=== PATIENT | female | born 1960 | race Caucasian/White ===

== ENCOUNTER 2016-03-22 08:30 | Inpatient (IN) | payer BC, OTHER ==
[2016-03-15 10:15] VITALS: BMI 21.9
--- NOTE | 2016-03-25 14:09 | HP ---
Admitting History and Physical - Primary Care Physician PCP: Shawna Spence - Admission Chief Complaint: left breast cancer History of Present Illness: Patient is a 56 yo female noted to have left breast calcifications x 2 areas ( post and ant) on screening mammo. 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 MRI was c/w known cancer and negative for contralateral dz. Genetic testing negative. Patient is now presenting for left mastectomy, snbx, possible andx and reconstruction. History Source: Patient Limitations to Obtaining History: No Limitations - Past Medical History Pulmonary: Yes: Asthma ...: No Endocrine: Yes: Hypothyroidism - Past Surgical History Past Surgical History: Yes: Tonsillectomy Additional Past Surgical History: rhinoplasty - Advance Directives Advance Directives: Yes: Health Care Proxy - Smoking History Smoking history: Never smoked Have you smoked in the past 12 months: No - Alcohol/Substance Use Hx Alcohol Use: Yes (on3 per week) Home Medications - Allergies Allergies/Adverse Reactions: Allergies Allergy/AdvReac Type Severity Reaction Status Date / Time No Known Allergies Allergy Verified 03/15/16 10:17 - Home Medications Home Medications: Ambulatory Orders Albuterol Sulfate [Proair Respiclick] 90 mcg IH PRN PRN 03/15/16 Cholecalciferol (Vitamin D3) [Vitamin D3 -] 1,000 unit PO DAILY 03/15/16 Levothyroxine [Synthroid -] 112 mcg PO DAILY 03/15/16 Mometasone Furoate [Asmanex 220Mcg -] 1 inh IH DAILY 03/15/16 [place]-3 Fatty Acids [Fish Oil] 1 cap PO DAILY 03/15/16 Family Disease History - Family Disease History Family Disease History: Diabetes: Father, Mother, Brother, [place]: Grandparent ( breast cancer) Other Family History: paternal aunt breast cancer 70s. maternal GM pancreatic cancer at 80 Review of Systems - Review of Systems Constitutional: reports: No Symptoms Cardiovascular: reports: No Symptoms Gastrointestinal: reports: No Symptoms Musculoskeletal: reports: Back Pain Physical Examination Constitutional: Yes: Well Nourished, No Distress Cardiovascular: Yes: WNL Respiratory: Yes: WNL Breast(s): Yes: Other (no suspicious palpable masses noted bilaterally. no suspicious adenopathy noted bilaterally) Problem List - Problems (1) Breast cancer, left Code(s): C50.912 - MALIGNANT NEOPLASM OF UNSPECIFIED SITE OF LEFT FEMALE BREAST Qualifiers: Breast location: overlapping sites of breast Patient gender: female Qualified Code(s): C50.812 - Malignant neoplasm of overlapping sites of left female breast Assessment/Plan Plan left mastectomy, snbx, poss andx with reconstruction
[2016-03-29] MEDS ORDERED: GENTAMICIN SO4 80 MG/2 ML VIAL ONE (07:25)
[2016-03-29] MEDS ORDERED: ceFAZolin SODIUM 1 GM VIAL ONE ×3 (07:25→14:06)
[2016-03-29] MEDS ORDERED: ISOSULFAN BLUE 10 MG/ML VIAL SQ ONE (07:39)
[2016-03-29] MEDS ORDERED: SUCCINYLCHOLINE CHLORIDE 200 MG/10 ML VIAL ONE (07:57)
[2016-03-29] MEDS ORDERED: PROPOFOL 20 ML ONE (07:57)
[2016-03-29] MEDS ORDERED: MIDAZOLAM HCL 2 MG/2 ML SINGLE DOSE VIAL ONE (07:57)
[2016-03-29] MEDS ORDERED: LIDOCAINE HCL/PF 2% SDV 5ML VIAL ONE (07:59)
[2016-03-29] MEDS ORDERED: DEXAMETHASONE SOD PHOSPHATE 4 MG/1 ML VIAL ONE (08:00)
[2016-03-29] MEDS ORDERED: ONDANSETRON 4 MG/2 ML VIAL ONE ×2 (08:00→14:06)
[2016-03-29] MEDS ORDERED: ROCURONIUM BROMIDE 50 MG/5 ML VIAL ONE (09:15)
[2016-03-29] MEDS ORDERED: LIDOCAINE 1%-EPI 1:100,000 30 ML MDV IJ ONE (09:30)
[2016-03-29] MEDS ORDERED: HYDROmorphone HCL/PF 1 MG/ML VIAL (FOR PYXIS CHARGING ONLY) ONE (09:33)
[2016-03-29] MEDS ORDERED: HYDROmorphone *PCA* 10MG/50ML DISP.SYRIN PCA ONE (09:36)
[2016-03-29] MEDS ORDERED: ZOLPIDEM TARTRATE 5 MG TABLET PO PRN (11:10)
[2016-03-29] MEDS ORDERED: ACETAMINOPHEN 325 MG TABLET (FP) PO PRN (11:10)
[2016-03-29] MEDS ORDERED: ONDANSETRON 4 MG/2 ML VIAL IVPB PRN (11:10)
[2016-03-29] MEDS ORDERED: PATIENT'S OWN MEDICATION (NON-FORMULARY) (Albuterol Sulfate [Proair Respiclick] 90 MCG) IH PRN (11:12)
[2016-03-29] MEDS ORDERED: DEXTROSE 5%-0.45% SALINE 1,000 ML IV SCH (11:15)
[2016-03-29] MEDS ORDERED: ONDANSETRON 4 MG/2 ML VIAL IVPUSH PRN (13:27)
[2016-03-29] MEDS ORDERED: DEXAMETHASONE SOD PHOSPHATE 4 MG/1 ML VIAL IVPUSH PRN (13:27)
[2016-03-29] MEDS ORDERED: PROMETHAZINE HCL 25 MG/1 ML VIAL IVPB PRN (13:27)
[2016-03-29] MEDS ORDERED: LACTATED RINGERS SOLUTION 1,000 ML IV SCH (13:30)
[2016-03-29] MEDS: HYDROmorphone *PCA* 10MG/50ML DISP.SYRIN PCA SCH (14:14)
[2016-03-29] MEDS: CEFAZOLIN 1 GM/D5W 50 ML IVPB SCH ×2 (15:00→21:14)
--- NOTE | 2016-03-29 16:21 | OP ---
DATE OF OPERATION: 03/29/2016 TITLE OF PROCEDURE: Left breast reconstruction with tissue composite engineer and acellular dermal matrix with separate 4-cm complex closure of left axillary wound. ATTENDING SURGEON: Fantasma Mathis MD NURSE EPIDEMIOLOGIST: There were no assistants. DESCRIPTION OF PROCEDURE: The procedure was performed in combination with a left-sided mastectomy with left sentinel lymph node biopsy performed by Dr. Spence and his team. Patient had been draped and positioned by Dr. Spence and his team, and I am scrubbed into the operation after completion of his portion of the procedure. The patient, prior to Dr. Sheridan portion of the procedure had received a gram of Ancef. Patient received sequential compression devices and LORRAINE stockings. Position points were carefully checked by surgical anesthesia team. She is draped and prepped in standard surgical fashion. At the completion of Dr. Sheridan portion of the procedure, I am scrubbed into the operation and feel hemostasis of the mastectomy wound was achieved. After which, the wound was copiously irrigated and a subpectoral pocket was developed. The lateral border of the pectoralis major muscle was elevated and dissection carried deep to the pectoralis dividing the most inferior fibers, however, leaving the more medial fibers attached. The inferior mammary fold was marked. A medium-sized contour perforated AlloDerm was sewn to the inframammary fold and the medial fold and to the medial inferior free edge of the pectoralis muscle. This was done with a 2-0 PDS suture. At this point, SPY was used to assess for perfusion of the skin flaps. The SPY showed several areas of inadequate perfusion, and decision at this point was made to choose a tissue composite engineer. A [employer] 133FX-12 Tissue Curriculum Manager was brought onto the field. It was rinsed in triple antibiotic solution. The triple antibiotic solution is 50,000 units of Bacitracin, a gram of Ancef, 8 mg of gentamicin, and a liter of saline. It was evacuated of all are using a 1-touch technique with new sterile gloves. These were placed into the pocket. The free edge of the inferior border of the pectoralis major muscle was then sewn to the superior freed edge of the AlloDerm with a running 2-0 PDS suture. The free edges of the skin were trimmed of several millimeters in order to remove any free edges of skin. The SPY was then reperformed showing minimal improvement of the areas of hypoperfusion. The tissue composite engineer was filled only to 50 mL and closed using a closed filling system. The deep capsular tissue was closed with a running locking 3-0 Monocryl suture followed by a series of interrupted buried deep dermal 3-0 Monocyrl suture followed by a running subcuticular 3-0 Monocryl suture. The axillary wound was then separately closed with a series of interrupted deep fascial 3-0 Monocryl suture within the Scarpas layer of fascia. The skin was then closed with a series of interrupted buried deep dermal 3-0 Monocryl sutures followed by running subcuticular 3-0 Monocryl sutures. All wounds were dressed with Steri-Strips. A 4x4 and ABD gauze dressing was applied with a compressive tube top. Patient was awoken from anesthesia. Please note that prior to closure, two size 10 flat SHEMAR drains were brought out through the lateral stab wound incisions, one in each superior and inferior recess of the wound, and the drains were placed to bulb suction. FANTASMA MATHIS M.D. [id number]
--- NOTE | 2016-03-29 18:02 | PN ---
Progress Note (short form) - Note Progress Note: VSS AF SHEMAR thin and appropriate, No collections Plan is for ambulation IS, wean MACHINE MOVER for AM
--- NOTE | 2016-03-29 18:47 | OP ---
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 PROCEDURE: Left total nipple-sparing mastectomy with sentinel node biopsy. ANESTHESIA: General, intubated. ATTENDING SURGEON: Shawna Spence MD BLOOD LOSS: Minimal. COMPLICATIONS: None. PROCEDURE: Patient was made aware of the risks and benefits of the procedure and consented. She was placed in the supine position, and after general anesthesia was induced, the patient was intubated. Then 2 mL of 1% isosulfan blue was locally infiltrated into the peritumoral tissues. The operative site was prepped and draped in the usual sterile fashion. After waiting approximately 10 minutes, with gentle manual compression, a curvilinear incision was made in the left axilla. Using blunt and sharp dissection, tissues were dissected down to the axillary fat, where several blue lymph nodes were identified and submitted for frozen section. This was reported as no evidence of malignancy. A mixture of 0.25% lidocaine with epinephrine combined with saline in a 1:2 ratio was infiltrated in the subcutaneous tissue of the left breast. An inframammary incision was made totalling 10 cm. Using electrocautery, the breast tissue was taken off the pectoralis muscle extending superior to the clavicle, medial to sternum, lateral latissimus dorsi. Using electrocautery and sharp dissection, the skin flaps were made to the clavicle, sternum, and latissimus dorsi, removing the entire breast, which was then submitted with a short suture superior, long suture lateral. Wound was copiously irrigated with normal saline, hemostasis maintained by electrocautery. The procedure was then turned over to Dr. Fantasma Dorman, who did boring machine set up operator jig implant reconstruction. He will dictate his portion of the procedure. SHAWNA SPENCE M.D. [id number]
[2016-03-30] MEDS: CEFAZOLIN 1 GM/D5W 50 ML IVPB SCH ×4 (03:17→21:13)
[2016-03-30] MEDS: LEVOTHYROXINE NA 112 MCG TABLET (FP) PO SCH (06:57)
--- NOTE | 2016-03-30 08:06 | PN ---
Progress Note (short form) - Note Progress Note: VSS AF All tissues viable SHEMAR's thin and functioning, serosanguinous Renaldo PO Pain well controlled ambulating to bathroom will d/c ROBOTIC MACHINE TENDER PRODUCTION
[2016-03-30 08:20] LABS: MCH 28.1 pg (25.7-33.7); MEAN CELL VOLUME 84.9 fl (80-96); MEAN PLT VOLUME 9.2 fl (7.5-11.1); PLATELET COUNT 135 K/MM3 (134-434); RDW 13.1 % (11.6-15.6); WHITE BLOOD COUNT 7.8 K/mm3 (4.0-10.0)
[2016-03-30] MEDS: SODIUM CHLORIDE 0.45% 1,000 ML IV SCH (08:54)
--- NOTE | 2016-03-30 09:27 | PN ---
Progress Note, Physician Chief Complaint: S/P left mastectomy with tissue leaf sucker operator placement POD#1 History of Present Illness: Patient is comfortable with good pain control - Current Medication List Current Medications: Active Medications Acetaminophen (Tylenol -) 650 mg PO Q4H PRN PRN Reason: FEVER Dexamethasone Sodium Phosphate (Decadron Injection -) 4 mg IVPUSH ONCE PRN PRN Reason: NAUSEA AND/OR VOMITING Diphenhydramine HCl (Benadryl Injection -) 12.5 mg IVPUSH ONCE PRN PRN Reason: FOR ITCHING Heparin Sodium (Porcine) (Heparin -) 5,000 unit SQ BID [facility] Hydromorphone HCl (Dilaudid Ndt Inspector -) 10 mg MARKETING GRAPHICS SPECIALIST MARKETING GRAPHICS SPECIALIST ANASTASIA PRN Reason: Protocol Stop: 04/05/16 09:00 Last Admin: 03/29/16 14:14 Dose: 1.6 mg Cefazolin Sodium (Ancef 1 Gm Premixed Ivpb -) 50 mls @ 100 mls/hr IVPB Q6H-IV [facility] Stop: 04/05/16 14:59 Last Admin: 03/30/16 08:54 Dose: 100 mls/hr Sodium Chloride (1/2 Normal Saline) 1,000 mls @ 75 mls/hr IV ASDIR [facility] Last Admin: 03/30/16 08:54 Dose: 75 mls/hr Levothyroxine Sodium (Synthroid -) 112 mcg PO DAILY@0700 [facility] Last Admin: 03/30/16 06:57 Dose: 112 mcg Mometasone Furoate (Asmanex 220mcg -) 1 puff IH HS [facility] Non-Formulary Medication (Albuterol Sulfate [Proair Respiclick]) 90 mcg IH PRN PRN PRN Reason: ASTHMA Ondansetron HCl (Zofran Injection) 4 mg IVPB Q6H PRN PRN Reason: NAUSEA AND/OR VOMITING Last Admin: 03/29/16 14:00 Dose: 4 mg Oxycodone/Acetaminophen (Percocet 5/325 -) 2 combo PO Q4H PRN PRN Reason: PAIN LEVEL 6-10 Promethazine HCl (Phenergan Injection -) 12.5 mg IVPB Q6H PRN PRN Reason: NAUSEA AND/OR VOMITING Zolpidem Tartrate (Ambien -) 5 mg PO HS PRN PRN Reason: Insomnia - Objective Vital Signs: Vital Signs Temperature 98.9 F 03/30/16 06:00 Pulse Rate 71 03/30/16 06:00 Respiratory Rate 18 03/30/16 06:00 Blood Pressure 101/54 03/30/16 06:00 O2 Sat by Pulse Oximetry (%) 99 03/30/16 06:00 Constitutional: Yes: Well Nourished, Calm Breast(s): Yes: Other (Flaps are warm with good color and some ecchymosis noted. JPs with serosanginous discharge.) Labs: CBC, BMP 03/30/16 07:43 Problem List - Problems (1) Breast cancer, left Code(s): C50.912 - MALIGNANT NEOPLASM OF UNSPECIFIED SITE OF LEFT FEMALE BREAST Qualifiers: Breast location: overlapping sites of breast Patient gender: female Qualified Code(s): C50.812 - Malignant neoplasm of overlapping sites of left female breast Assessment/Plan Plan: DC the MARKETING GRAPHICS SPECIALIST and transition to PO meds Teach SHEMAR monitoring OOB today with assistance Continue IV axbx
[2016-03-30] MEDS: HYDROmorphone *PCA* 10MG/50ML DISP.SYRIN PCA SCH (12:00)
[2016-03-30] MEDS: OXYCODONE/APAP 5/325MG COMBO TABLET PO PRN ×2 (17:14→21:13)
[2016-03-30] MEDS ORDERED: diphenhydrAMINE HCL 25 MG CAPSULE (FP) PO ONE (19:45)
[2016-03-30] MEDS: HEPARIN NA (PORCINE) 5,000 UNITS/ML 1ML VIAL SQ SCH (21:13)
[2016-03-30] MEDS ORDERED: MOMETASONE FUROATE 220 MCG/IH INHALER IH SCH (22:00)
[2016-03-30] MEDS: CEPHALEXIN MONOHYDRATE 500 MG CAPSULE (UD) PO SCH (23:38)
[2016-03-31] MEDS: OXYCODONE/APAP 5/325MG COMBO TABLET PO PRN ×3 (03:09→13:49)
[2016-03-31] MEDS: CEPHALEXIN MONOHYDRATE 500 MG CAPSULE (UD) PO SCH ×2 (06:22→11:42)
[2016-03-31] MEDS: LEVOTHYROXINE NA 112 MCG TABLET (FP) PO SCH (06:23)
[2016-03-31 06:34] VITALS: BP 105/58; PULSE 80; TEMP 99
--- NOTE | 2016-03-31 08:38 | PN ---
Progress Note, Physician Chief Complaint: Left breast cancer S/P left breast wide excision sentenel node biopsy engine lathe set up operator reconstruction History of Present Illness: patient s pain is managed with oral percocet, C/o slight headache, ready for discharge today - Current Medication List Current Medications: Active Medications Acetaminophen (Tylenol -) 650 mg PO Q4H PRN PRN Reason: FEVER Cephalexin HCl (Keflex -) 500 mg PO Q6HPO [facility] Last Admin: 03/31/16 06:22 Dose: 500 mg Dexamethasone Sodium Phosphate (Decadron Injection -) 4 mg IVPUSH ONCE PRN PRN Reason: NAUSEA AND/OR VOMITING Diphenhydramine HCl (Benadryl Injection -) 12.5 mg IVPUSH ONCE PRN PRN Reason: FOR ITCHING Heparin Sodium (Porcine) (Heparin -) 5,000 unit SQ BID [facility] Last Admin: 03/30/16 21:13 Dose: 5,000 unit Sodium Chloride (1/2 Normal Saline) 1,000 mls @ 75 mls/hr IV ASDIR [facility] Last Admin: 03/30/16 08:54 Dose: 75 mls/hr Levothyroxine Sodium (Synthroid -) 112 mcg PO DAILY@0700 [facility] Last Admin: 03/31/16 06:23 Dose: 112 mcg Mometasone Furoate (Asmanex 220mcg -) 1 puff IH HS [facility] Last Admin: 03/30/16 21:14 Dose: 1 puff Non-Formulary Medication (Albuterol Sulfate [Proair Respiclick]) 90 mcg IH PRN PRN PRN Reason: ASTHMA Ondansetron HCl (Zofran Injection) 4 mg IVPB Q6H PRN PRN Reason: NAUSEA AND/OR VOMITING Last Admin: 03/29/16 14:00 Dose: 4 mg Oxycodone/Acetaminophen (Percocet 5/325 -) 2 combo PO Q4H PRN PRN Reason: PAIN LEVEL 6-10 Last Admin: 03/31/16 03:09 Dose: 2 combo Promethazine HCl (Phenergan Injection -) 12.5 mg IVPB Q6H PRN PRN Reason: NAUSEA AND/OR VOMITING Zolpidem Tartrate (Ambien -) 5 mg PO HS PRN PRN Reason: Insomnia - Objective Vital Signs: Vital Signs Temperature 99.0 F 03/31/16 06:33 Pulse Rate 80 03/31/16 06:33 Respiratory Rate 18 03/31/16 06:33 Blood Pressure 105/58 03/31/16 06:33 O2 Sat by Pulse Oximetry (%) 93 L 03/31/16 06:33 Constitutional: Yes: Well Nourished Breast(s): Yes: Other (Left breast skin flap echymosis upper outer quadrant but viable incicison intact steristrips in place matheus drain functioning) Labs: CBC, BMP 03/30/16 07:43 Problem List - Problems (1) Breast cancer, left Code(s): C50.912 - MALIGNANT NEOPLASM OF UNSPECIFIED SITE OF LEFT FEMALE BREAST Qualifiers: Breast location: overlapping sites of breast Patient gender: female Qualified Code(s): C50.812 - Malignant neoplasm of overlapping sites of left female breast Assessment/Plan Discharge patient home today follow up next week with Dr Dorman and Dr plata matheus drain training percocet prn
[2016-03-31] MEDS: HEPARIN NA (PORCINE) 5,000 UNITS/ML 1ML VIAL SQ SCH (09:29)
[2016-03-31] MEDS: SODIUM CHLORIDE 0.45% 1,000 ML IV SCH (09:29)
[2016-03-31] MEDS ORDERED: POLYETHYLENE GLYCOL 3350 119 GM BTL PO ONE (09:30)
--- NOTE | 2016-04-04 16:41 | PATH ---
Surgical Pathology Report Patient Name: ADALGISA FIGUEROA Med. Rec. #: [id number] /Age/Gender: 1960 (Age: 56) / F Account: [id number] Location: [facility] Taken: 03/29/2016 Received: 03/29/2016 Reported: 04/04/2016 Physicians: Shawna Spence M.D. Specimen(s) Received A: LEFT BREAST SENTINEL LYMPH NODES. FS#1 B: LEFT BREAST RETROAREOLAR BIOPSY. FS#2 C: LEFT BREAST MASTECTOMY Clinical History Left breast cancer Intraoperative Consult Diagnosis A. Left breast sentinel lymph nodes: At least 6 lymph nodes; No carcinoma identified. 3TPs, 4 FSs. B. Left breast retroareolar biopsy: No carcinoma identified. 1FS. Per Dr. Barraza 03/29/16. Final Diagnosis A. SENTINEL LYMPH NODES, LEFT BREAST, BIOPSY: SIX LYMPH NODES NEGATIVE FOR METASTATIC CARCINOMA (0/6). B. BREAST, LEFT, RETROAREOLAR BIOPSY: BENIGN BREAST TISSUE. C. BREAST, LEFT, NIPPLE SPARING MASTECTOMY: FOCI OF MICROINVASIVE CARCINOMA IN BACKGROUND OF EXTENSIVE DUCTAL CARCINOMA IN SITU (DCIS), HIGH NUCLEAR GRADE, SOLID AND CRIBRIFORM TYPES WITH EXTENSIVE COMEDO-TYPE NECROSIS, CALCIFICATIONS, LOBULAR EXTENSIONS AND PERIDUCTAL SCLEROSIS. INVASIVE CARCINOMA FOCLITY AND SIZE: AT LEAST TWO FOCI OF MICROINVASION (<0.1 CM). DCIS EXTENT: DCIS IS EXTENSIVE, PRESENT IN LOWER AND UPPER INNER QUADRANTS AND LOWER OUTER QUADRANT. ASSOCIATED 2 PRIOR BIOPSY SITES IN THE LOWER AND UPPER INNER QUADRANTS. FOCAL LOBULAR CARCINOMA IN SITU (LCIS), CLASSICAL TYPE. SURGICAL RESECTION MARGINS: WIDELY NEGATIVE FOR INVASIVE CARCINOMA (>1 CM); DCIS IS FOCALLY LESS THAN 1 MM TO ANTERIOR SOFT TISSUE MARGIN; DCIS IS LESS THAN 1 MM TO THE DEEP MARGIN. LYMPHOVASCULAR INVASION: PRESENT. SURROUNDING BREAST TISSUE: FIBROCYSTIC CHANGE WITH SCLEROSING ADENOSIS, COLUMNAR CELL CHANGE, AND STROMAL FIBROSIS WITH ASSOCIATED MICROCALCIFICATIONS. PATHOLOGIC STAGING: REFER TO CHECKLIST BELOW. RECEPTOR STATUS: REFER TO CHECKLIST BELOW. Comment: Immunohistochemical stain for E-Cadherin performed and interpreted [facility] on block C8 show the following: strong membranous staining is seen in DCIS; attenuated staining in seen in focal LCIS. Immunohistochemical stains for p63 and SMM-HC performed and interpreted on blocks C11 and C12 show focal areas devoid of myoepithelial cells consistent with microinvasion. Immunohistochemical stains for CD31, CD#4 and D2-40 performed on block C12 at [place], [place] (ET17-25) highlight vascular channels, supporting lymphovascular invasion. Comments DCIS of Breast: Surgical Pathology Cancer Case Summary Based on AJCC/UICC TNM, 7th edition Procedure _x_ Nipple sparing mastectomy (devoid of nipple and skin) Lymph Node Sampling _x_ [place] lymph nodes Specimen Laterality _x_ Left Tumor Size: Size of Largest Invasive Carcinoma _x_ Microinvasion only (= 1 mm) Tumor Focality _x_ At least two foci of microinvasive carcinoma Macroscopic and Microscopic Extent of Tumor Skin _x_ No skin present Nipple _x_ Not applicable (excisions less than total mastectomy) Skeletal Muscle _x_ No skeletal muscle present Ductal Carcinoma In Situ (DCIS) _x_ DCIS is present _x_ as a major component (>25% of tumor, extensive intraductal component) Estimated size (extent) of DCIS (greatest dimension using gross and microscopic evaluation): Number of blocks with DCIS: 9 Number of blocks examined: 19 Nuclear Grade _x_ Grade III (high) Necrosis _x_ Present, central (expansive "comedo" necrosis) Histologic Type of Invasive Carcinoma: _x_ Micro-invasive carcinoma Histologic Grade: ([place] Histologic Score) Tubular Differentiation _x_ Only microinvasion present (not graded) Nuclear Pleomorphism _x_ Only microinvasion present (not graded) Mitotic Rate _x_ Only microinvasion present (not graded) Overall Grade _x_ Only microinvasion present (not graded) Margins _x_ Margins uninvolved by invasive carcinoma Distance from closest margin: >1 cm _x_ Margins close to (< 1 mm) DCIS: anterior soft tissue and deep margins are less than 1 mm away from DCIS Lymph-Vascular Invasion _x_ Present Lymph Nodes Total number of nodes examined (sentinel and nonsentinel): 6 Number of sentinel nodes examined: 6 Lymph Node Involvement (required only if 1 or more lymph nodes have tumor cells identified) Number of lymph nodes with macrometastases (>2 mm): 0 Number of lymph nodes with micrometastases (>0.2 mm to 2 mm and/or >200 cells): 0 Number of lymph nodes with isolated tumor cells (=0.2 mm and =200 cells): 0 Size of largest metastatic deposit: n/a Pathologic Staging (pTNM) Primary Tumor (pT): pTmi Regional Lymph Nodes (pN): pN0(sn) Distant metastases (pM): not applicable Biomarker Studies Results of ER and CO studies performed on block C8 at [facility] are as follows: ER (clone [id number] mouse monoclonal antibody by [employer]): 0% nuclear staining (Negative). CO (clone16 mouse monoclonal antibody by [employer]): 0% nuclear staining (Negative). Results of Her2 IHC performed on block C12 at [place], [place] (ET17-25) are as follows: Her2 IHC (EP3 from [employer], formerly known as [id number], using [employer] Polymer Refine detection kit):3+ (Positive) Ki67: not performed (only microinvasive carcinoma present) Positive and negative controls (internal if applicable) show appropriate results. Formalin fixation and cold ischemic times are within current ASCO/CAP recommendations for ER, CO and Her2 testing. Electronically Signed Donte Barraza M.D. Gross Description A. Received fresh, labeled "left breast sentinel lymph nodes" multiple fragments of kim-pink fibrofatty tissue in which six kim rubbery lymph nodes ranging from 0.2 to 1.9 cm in greatest dimension are identified. Three larger lymph nodes are bisected, touch preps are made and tree frozen sections are performed. Three smaller lymph nodes submitted entirely for an additional frozen section. Frozen section residues are submitted entirely in four cassettes. B. Received fresh, labeled "left breast retroareolar biopsy" is a 1.2 x 0.4 x 0.2 cm fragments of kim-pink tissue. The specimen is submitted entirely for frozen section. Frozen section residue is submitted entirely in one cassette. 03/29/2016 C. Received in formalin, labeled "left breast mastectomy" is a 358 gram, 17.5 x 16.5 x 2.0 cm. left mastectomy specimen with a short suture marking the superior aspect and a long suture marking the lateral aspect of the specimen, per the surgeon. There is no skin or nipple present. The deep margin is inked black and the anterior soft tissue margin is inked blue. The specimen is serially sectioned from medial to lateral. Sectioning reveals a 2.0 x 1.8 x 1.5 cm focus of firm fibrous tissue in the lower inner quadrant (LIQ). The focus displays central hemorrhage, consistent with a previous biopsy site. There is an additional 2.3 x 2.0 x 1.5 cm focus of firm fibrous tissue in the upper inner quadrant (UIQ), abutting the deep margin. No definitive masses are identified. The remaining breast parenchyma displays abundant firm fibrous tissue. Director Social Service sections are submitted in 19 cassettes as follows: 1-3-LIQ previous biopsy site with firm fibrous tissue; 1-3-hrzipzamrc uninvolved LIQ tissue; 8-10-UIQ firm fibrous tissue with deep margin; 82-33-abyninpklb UIQ firm fibrous tissue; 13-uninvolved UIQ tissue; 38-81-szlgx-outer quadrant; 16-17-lower outer quadrant; 18-anterior soft tissue margin; 19-deep margin. Time to fixation; <1h Total formalin fixation time: ~31h DL/03/30/2016 final/03/29/2016
== END 2016-03-31 14:00 | disposition home or self-care (01) | DRG 581 ==
LOC: FM/S 03-29 07:02
PROVIDERS: ADMIT Surgery Surgical Oncology; ATTEND Surgery Surgical Oncology
PROC: 0HBU0ZZ Excision of Left Breast, Open Approach (ICD-10-PCS; principal; 2016-03-29 09:46)
PROC: 07B60ZX Excision of Left Axillary Lymphatic, Open Approach, Diagnostic (ICD-10-PCS; 2016-03-29 09:46)
PROC: 0HHU0NZ Insertion of Tissue Expander into Left Breast, Open Approach (ICD-10-PCS; 2016-03-29 09:46)
DX: C50.812 Malignant neoplasm of overlapping sites of left female breast (principal); J45.909 Unspecified asthma, uncomplicated; E03.9 Hypothyroidism, unspecified
CPT/HCPCS: 36415; 85027; 88305-TC; 88307-TC; 88331-TC; 88332; 88341-TC; 94010; 94760; J1644

== ENCOUNTER 2016-06-30 06:31 | Day surgery (SDC) | payer BC, OTHER ==
[2016-06-28 12:01] VITALS: BMI 21.6
[~2016-06-30 06:31] MED LIST: DEXAMETHASONE SOD PHOSPHATE 4 MG/1 ML VIAL ONE; LIDOCAINE HCL/PF 2% SDV 5ML VIAL ONE; PROPOFOL 20 ML ONE; ROCURONIUM BROMIDE 50 MG/5 ML VIAL ONE; SUCCINYLCHOLINE CHLORIDE 200 MG/10 ML VIAL ONE; ePHEDrine SULFATE 50 MG/1 ML AMPULE ONE
[2016-06-30] MEDS ORDERED: GENTAMICIN SO4 80 MG/2 ML VIAL ONE ×2 (07:38→07:55)
[2016-06-30] MEDS ORDERED: ceFAZolin SODIUM 1 GM VIAL ONE (07:38)
[2016-06-30] MEDS ORDERED: SCOPOLAMINE HYDROBROMIDE 1 PATCH PATCH.TD72 ONE (08:02)
[2016-06-30] MEDS ORDERED: MIDAZOLAM HCL 2 MG/2 ML SINGLE DOSE VIAL ONE (08:05)
[2016-06-30] MEDS ORDERED: ACETAMINOPHEN INJECTION 100 ML IVPB ONE (08:06)
[2016-06-30] MEDS ORDERED: DEXAMETHASONE SOD PHOSPHATE 4 MG/1 ML VIAL ONE (09:58)
[2016-06-30] MEDS ORDERED: ONDANSETRON 4 MG/2 ML VIAL ONE (09:58)
[2016-06-30] MEDS ORDERED: KETOROLAC TROMETHAMINE 30 MG/1 ML VIAL IVPUSH ONE (10:53)
[2016-06-30] MEDS ORDERED: PROMETHAZINE HCL 25 MG/1 ML VIAL IVPUSH PRN (10:53)
[2016-06-30] MEDS ORDERED: LACTATED RINGERS SOLUTION 1,000 ML IV SCH (11:00)
[2016-06-30] MEDS ORDERED: ONDANSETRON 4 MG/2 ML VIAL IVPB PRN (11:40)
[2016-06-30] MEDS ORDERED: ONDANSETRON 4 MG/2 ML VIAL IVPUSH PRN (11:40)
[2016-06-30] MEDS ORDERED: oxyCODONE HCL 5 MG TABLET PO PRN ×3 (11:40→11:41)
[2016-06-30 11:51] VITALS: TEMP 98.6
[2016-06-30] MEDS ORDERED: oxyCODONE HCL 5 MG TABLET ONE (12:33)
[2016-06-30 13:14] VITALS: BP 110/71; PULSE 67
--- NOTE | 2016-07-01 07:58 | OP ---
DATE OF OPERATION: 06/30/2016 PROCEDURE: Left reconstructed breast, capsulectomy, removal of existing implant with replacement with silicone gel implant, further removal of nipple with local advancement flap closure of defect. ATTENDING SURGEON: Millie Mathis MD PREOPERATIVE DIAGNOSIS: Left breast cancer with tissue professor of nursing in place and malpositioned left nipple. POSTOPERATIVE DIAGNOSIS: Left breast cancer with tissue professor of nursing in place and malpositioned left nipple. CABLE WIRER: None. ANESTHESIA: General endotracheal anesthesia. DESCRIPTION OF PROCEDURE: The patient is counseled on all risks, benefits, and alternatives of the procedure. In the holding area, she is marked awake and aware of all incisions and resulting scars. She is brought to the operating room. Then 2 g of Ancef were given preoperatively. Sequential compression stockings and Tate hose are applied. She is positioned in a supine position. Position carefully checked by surgical anesthesia teams. She is prepped and draped in a standard surgical fashion, and a time-out is called. Patient, procedure site, sides are verified. At this point, incision was made overlying the existing mastectomy scar through which the periprosthetic capsule is identified and capsulotomy is performed. Through the capsulotomy, the existing tissue professor of nursing is removed. Without rupturing the tissue professor of nursing, the volume is verified by removing through the port the full volume in the tissue professor of nursing, which was 225 mL of saline. A partial capsulectomy is then performed of the superior pole of the breast. Partial capsulectomy is performed of the posterior capsule. Capsulotomy is then performed laterally to allow for better lateral fill. With this, the patient is brought to a seated upright position with a 225-mL sizer placed in the breast, which appears slightly smaller than the contralateral breast. Decision is then made to use a Natrelle-style 410 LX 255-mL highly cohesive gel textured surface implant. This is rinsed with triple antibiotic solution. The pocket is rinsed with triple antibiotic solution. Meticulous hemostasis is achieved prior to implantation. The implant is properly oriented, and the capsule is then closed with a running, locking 3-0 Monocryl suture. The deep fat is closed with a running 3-0 Monocryl suture. Deep dermis is closed with a series of interrupted buried deep dermal, 3-0 Monocryl, and the skin is then closed with a running subcuticular 3-0 Monocryl suture. The patient in an upright seated position is found to have good symmetry of size and shape. The malpositioned nipple is then marked for direct excision elliptically. Adequate laxity of the skin is available for closure. Nipple is excised. Sent for pathology. The superior and inferior mastectomy flaps are mobilized for a straight line closure. This is done with undermining and re-elevating segments of the mastectomy flaps, which were then secured to one another with buried deep dermal 3-0 Monocryl suture followed by a running subcuticular 4-0 Monocryl suture. A 5-0 nylon suture is used to correct closure irregularities. The wounds are all dressed with Steri-Strips, 4x4 gauge, ABD gauge, and a breast binder. The patient is awoken from anesthesia having tolerated procedure well and transferred to recovery without complication. It should be noted for this case the antibiotic solution used to rinse the cavities in the implant was a liter of normal saline with 2 g of Ancef, 80 mg of gentamicin, and 50,000 units of bacitracin. Also, please note the implants were not handled directly but were placed using the Santos Funnel for a no-touch technique. MILLIE MATHIS M.D. [id number]
--- NOTE | 2016-07-06 13:19 | PATH ---
Surgical Pathology Report Patient Name: ADALGISA FIGUEROA [facility]. Rec. #: [id number] /Age/Gender: 1960 (Age: 56) / F Account: [id number] Location: [facility] Taken: 06/30/2016 Received: 06/30/2016 Reported: 07/06/2016 Physicians: Fantasma Dorman Specimen(s) Received A: LEFT BREAST MANAGER PROTEIN B: LEFT BREAST CAPSULE C: LEFT NIPPLE Clinical History Left breast CA Final Diagnosis A. MANAGER PROTEIN, LEFT BREAST, REMOVAL: MANAGER PROTEIN, DESCRIBED (GROSS EXAMINATION ONLY). B. CAPSULE, LEFT BREAST, CAPSULECTOMY: FIBROUS CAPSULE. C. NIPPLE, LEFT, EXCISION: NIPPLE SHOWING SMALL EPIDERMAL INCLUSION CYSTS AND DERMAL FIBROSIS. Electronically Signed Sindy Cazares M.D. Gross Description A. Received fresh labeled "left breast wind operations supervisor," is 11.0 x 9.0 x 2.5 cm kim, irregular device, consistent with a breast tissue wind operations supervisor. No soft tissue is present. No sections are submitted, gross only. B. Received in formalin labeled "left breast capsule," is a 4.5 x 2.6 x 0.3 cm aggregate of multiple kim, irregular portions of fibrous tissue, consistent with a fibrous capsule. No masses are identified. Office Clin Asst sections are submitted in one cassette. C. Received in formalin labeled "left nipple," is a 2.0 x 1.2 cm kim, elliptical, unoriented portion of skin excised to depth of 0.1 cm. The epidermal surface displays a central 1.2 cm in diameter nipple. The base is inked green and the specimen is serially sectioned. Sectioning reveals diffuse firm fibrous tissue. No definitive masses are identified. The specimen is entirely submitted in 5 cassettes as follows: 1-undesignated tips; 7-4-xozrinaa and sequentially submitted remainder of specimen. 07/01/201607/01/2016
== END 2016-06-30 13:15 | disposition home or self-care (01) ==
LOC: FASU 06:31
PROVIDERS: ATTEND Plastic Surgery
PROC: 0HUU0JZ Supplement Left Breast with Synthetic Substitute, Open Approach (ICD-10-PCS; 2016-06-30)
PROC: [UNRECOGNIZED PROCEDURE] (2016-06-30)
PROC: 0HPU0NZ Removal of Tissue Expander from Left Breast, Open Approach (ICD-10-PCS; principal; 2016-06-30 08:52)
PROC: 0HRU0JZ Replacement of Left Breast with Synthetic Substitute, Open Approach (ICD-10-PCS; 2016-06-30 08:52)
DX: C50.912 Malignant neoplasm of unspecified site of left female breast (principal); N64.89 Other specified disorders of breast
CPT/HCPCS: 88300-TC; 88304-TC; 94760